=== PATIENT | male | born 1955 | race American Indian/Alaskan Native ===

== ENCOUNTER 2016-08-12 12:42 | Outpatient (CLI) | payer OTHER ==
--- NOTE | 2016-08-12 13:34 | XRay Report ---
ROUTINE CHEST, TWO VIEWS: PA and lateral views demonstrate the heart and mediastinal contour to be of normal size and shape. The lungs are clear and fully expanded and the soft tissues and bony structures are normal. IMPRESSION: Normal study. No significant change compared to November 07, 2015.
--- NOTE | 2016-08-12 16:09 | Vascular Lab Report ---
LOWER EXTREMITY VENOUS DUPLEX: REASON FOR EXAM: Pain and swelling of the lower extremities. COMMENTS ON THE RIGHT: All veins visualized are freely compressible without evidence of internal echogenicity. Flow is spontaneous and phasic throughout. COMMENTS ON THE LEFT: All veins visualized are freely compressible without evidence of internal echogenicity. Flow is spontaneous and phasic throughout. Soft tissue changes are consistent with ruptured Chung's cyst. IMPRESSION: No evidence of acute or chronic deep venous thrombosis in either lower extremity.
== END 2016-08-12 12:43 | disposition home or self-care (01) ==
LOC: VAS 12:42
PROVIDERS: ATTEND Internal Medicine
DX: J44.9 Chronic obstructive pulmonary disease, unspecified (principal); G47.30 Sleep apnea, unspecified
CPT/HCPCS: 71020; 93970